=== PATIENT | male | born 1960 | race Caucasian/White ===

== ENCOUNTER 2017-01-28 12:07 | Emergency (ER) | payer BC ==
[2017-01-28 12:35] LABS: EOSINOPHIL (%) 0.1 % (0-5); HEMATOCRIT 44.8 % (38.0-50.0); IMMATURE GRANULOCYTE (%) 0.3 % (0.0-0.7); IMMATURE GRANULOCYTE COUNT 0.1 K/uL; INSTRUMENT ABS NEUTROPHIL CT 15.7 K/uL; LYMPHOCYTE COUNT 0.7 K/uL (1.0-2.8); MCHC 33.9 G/DL (30.0-36.0); MCV 88.4 FL (86-99); MEAN PLAT.VOLUME 8.8 uM^3 (9.0-12.4); MONOCYTE (%) 4.2 % (3-12); MONOCYTE COUNT 0.7 K/uL (0-0.8); NEUTROPHIL (%) 91.1 % (45-76); NEUTROPHIL COUNT 15.7 K/uL (1.8-6.4); PLATELET COUNT 220 K/uL (156-360); RBC DIS.WIDTH-CV 11.8 % (11.8-14.6); RBC DIS.WIDTH-SD 37.3 % (39-53); RED BLOOD COUNT 5.07 M/uL (4.00-5.50); WHITE BLOOD COUNT 17.2 K/uL (4.1-10.2)
[2017-01-28 12:47] LABS: AMYLASE 42 IU/L (1-118); CHLORIDE 111 mEq/L (99-109); SODIUM 139 mEq/L (136-147)
[2017-01-28 12:49] LABS: GLUCOSE 106 mg/dL (70-99)
[2017-01-28 12:50] LABS: ANION GAP 8 MEQ/L (2-14)
[2017-01-28 12:52] LABS: SERUM ETHYL ALCOHOL < 10 mg/dL
[2017-01-28 12:53] LABS: GFR ESTIMATE (CALCULATED) > 59 mL/min/
[2017-01-28 12:54] LABS: UREA NITROGEN (BUN) 16 mg/dL (9-23)
[2017-01-28 12:56] LABS: LIPASE 23 U/L (1.0-51.0)
[2017-01-28] MEDS ORDERED: PERCOCET 5/31 TABLET PO ×2 (14:05→14:15)
== END 2017-01-28 15:32 | disposition home or self-care (01) ==
LOC: TRA 12:07
PROVIDERS: Emergency Medicine
DX: S82.841A Displaced bimalleolar fracture of right lower leg, initial encounter for closed fracture (principal); V80.010A Animal-rider injured by fall from or being thrown from horse in noncollision accident, initial encounter; Y93.52 Activity, horseback riding
CPT/HCPCS: 73600; 80048; 81003; 82150; 83690; 85025; 86850; 86900; 86901; 99281; 99285; G0480; J2405; J3010